=== PATIENT | male | born 1940 | race Caucasian/White ===

== ENCOUNTER 2018-11-02 08:19 | Outpatient (CLI) | payer MEDICARE, SELFPAY ==
[2018-11-02 15:17] LABS: HCT 34.1 % (40.0-50.0); HGB 11.3 g/dL (13.5-17.5); Mean Corp. HGB Concentration 33.1 g/dL (32.0-36.0); Mean Corpuscular Hemoglobin 32.2 pg (27.0-33.0); Mean Corpuscular Volume 97.2 fL (80-95); Mean Platelet Volume 11.7 fL (8.0-11.0); Platelet Count 190 x1000/uL (130-400); RBC 3.51 m/cumm (4.50-6.00); RBC Distribution Width 13.9 % (11.8-14.1); White Blood Cell Count 6.43 k/cumm (4.4-10.8)
[2018-11-02 16:25] LABS: Anion Gap 7.4 mmol/L (3-11); BUN 22 mg/dL (7-18); CO2 29.6 mmol/L (21.0-32.0); CREATININE 1.61 mg/dL (0.70-1.30); Chloride 104 mmol/L (98-107); Estimated GFR 41.61 (mL/min/1.73m2); Potassium 4.1 mmol/L (3.5-5.1); Sodium 141 mmol/L (136-145)
[2018-11-02 16:48] LABS: Troponin I 0.24 ng/mL (0.00-0.06)
[2018-11-02 17:15] LABS: NT-proBNP 3403 pg/mL
== END 2018-11-02 08:39 ==
PROVIDERS: Visit Provider Internal Medicine Interventional Cardiology
DX: I21.4 Non-ST elevation (NSTEMI) myocardial infarction (principal); R06.02 Shortness of breath; I11.9 Hypertensive heart disease without heart failure; I48.91 Unspecified atrial fibrillation; I51.9 Heart disease, unspecified; E78.5 Hyperlipidemia, unspecified; K21.9 Gastro-esophageal reflux disease without esophagitis
CPT/HCPCS: 36415; 80051; 84520; 85027; 99215; 82565; 83880; 84484; 93005; 93010

== ENCOUNTER 2018-11-02 18:22 | Emergency (ER) | payer MEDICARE, SELFPAY ==
[2018-11-02] VITALS (19 sets, daily range): BP systolic 145–161; BP diastolic 61–82; PULSE 83–98; RESP 18–25; TEMP 37.2; O2SAT 93–96
--- NOTE | 2018-11-02 18:44 | DI.RAD_ITS ---
SYMPTOM/DIAGNOSIS: SOB, NSTEMI PORTABLE AP CHEST: The lungs are poorly inflated. No gross infiltrates are seen. The heart size is difficult to evaluate due to hypoinflation. Basilar infiltrates cannot be excluded. Leads overlie the chest. IMPRESSION: Limited exam. No gross evidence of an acute abnormality.
--- NOTE | 2018-11-02 18:45 | W.ED.GENAD ---
Discharge Plan Disposition Patient Disposition: [facility] Condition: Serious Discharge Details Chief Complaint: Chest Pain Clinical Impression: Non-ST elevation VT (NSTEMI) Primary Care Provider: None,None ED Provider: Maverick Albrecht Home Meds and New Rx's Prescriptions: No Action aspirin 81 mg tablet,delayed release (DR/EC) 81 mg PO DAILY RF: 0 nitroglycerin [Nitrostat] 0.4 mg tablet, sublingual 0.4 mg SL ONCE RF: 0 atorvastatin 40 mg tablet 40 mg PO DAILY RF: 0 lisinopril 10 mg tablet 10 mg PO DAILY Qty: 30 RF: 12 furosemide [Lasix] 20 mg tablet 10 mg PO DAILY Qty: 30 RF: 12 metoprolol succinate 25 mg tablet extended release 24 hr 25 mg PO DAILY Qty: 30 RF: 12 Medical Decision Making 78-year-old male with history of coronary artery disease status post drug-eluting stent to his LAD in February 2017. He was in the cardiology office today, establishing care with Dr. So and stated to him that he has had increasing episodes of exertional dyspnea that is begun to limit his activity. Last night he developed 20 minutes of anterior chest pain at for which he took a single nitroglycerin with improvement. After today's clinic visit, labs were ordered and the patient subsequent referred to the emerge department for a positive troponin of 0.24. He denies further episodes of chest discomfort. He states that he has been unable to walk his dog due to the discomfort and it is begun to worsen with such mild activity such as sex wiping snow off his car. He arrives in no acute distress, blood pressure 161/80. His initial EKG shows T wave inversions in leads I, aVL, V6. No comparisons in our system. Reviewed laboratory from earlier in the day which does reveal troponin of 0.24, creatinine 1.6, BNP of 3400. Repeat laboratories are similar. While in the ER, the patient had a recurrent episode of chest discomfort that resolved with single administration of nitroglycerin. His EKGs were faxed & the case discussed with on-call cardiology at [facility], where patient accepted in transfer. Lab Data Lab results reviewed: Yes I reviewed the patient's lab results. Laboratory Results - last 24 hr 11/02/18 11/02/18 11/02/18 19:04 19:04 19:04 WBC 7.24 RBC 3.40 L Hgb 11.3 L Hct 33.0 L MCV 97.1 H MCH 33.2 H MCHC 34.2 RDW 14.0 Plt Count 189 MPV 11.5 H Immature Gran % 0.3 Neutrophils % 42.3 Lymphocytes % 48.6 Monocytes % 4.8 Eosinophils % 3.9 Basophils % 0.1 Absolute Neutrophils 3.06 Absolute Lymphocytes 3.52 H Absolute Monocytes 0.35 Absolute Eosinophils 0.28 Absolute Basophils 0.01 APTT 24.7 Sodium 142 Potassium 3.9 Chloride 104 Carbon Dioxide 31.0 Anion Gap 7.0 BUN 22 H Creatinine 1.81 H Estimated GFR/1.73 m2 36.35 Glucose 103 H Calcium 9.5 Magnesium 2.1 Total Bilirubin 0.8 AST 50 H ALT 65 Alkaline Phosphatase 122 H Troponin I 0.26 H Total Protein 6.9 Albumin 3.4 ECG Data Attestation: I personally reviewed and interpreted this ECG (s) as follows: Prior ECG tracings: not available for review Interpretation: Normal sinus rhythm, rate 94, QRS is T wave inversions in leads I, aVL, V6 HPI General Mode of arrival: ambulatory. Date/Time Provider Initiated Documentation: 11/02/18 18:23. Limitations to Documentation: no limitations. Information obtained by: patient and family. History of Present Illness 78 year old M presents to the emergency department with the chief complaint of Exertional dyspnea and positive troponin, described as moderate, Quality is described as dull, and is localized to the chest. Patient reports no radiation. Patient started experiencing this week(s) and it has been intermittent. Rest improves symptom(s), Movement worsens symptoms . Patient notes chest pain and shortness of breath. Patient did receive the following treatments prior to arrival, none HPI Narrative: Chest pain last night. Increasing intolerance of exertion due to shortness of breath over 2-3 months time. Positive troponin today and referred by cardiology. Related Data Home Medications Medication Instructions Recorded Confirmed aspirin 81 mg tablet,delayed 81 mg PO DAILY 10/30/18 11/02/18 release nitroglycerin 0.4 mg sublingual 0.4 mg SL ONCE 10/30/18 11/02/18 tablet atorvastatin 40 mg tablet 40 mg PO DAILY 11/02/18 11/02/18 furosemide 20 mg tablet 10 mg PO DAILY #30 tab 11/02/18 11/02/18 lisinopril 10 mg tablet 10 mg PO DAILY #30 tab 11/02/18 11/02/18 metoprolol succinate ER 25 mg 25 mg PO DAILY #30 tab 11/02/18 11/02/18 tablet,extended release 24 hr Previous Rx's Medication Instructions Recorded furosemide 20 mg tablet 10 mg PO DAILY #30 tab 11/02/18 lisinopril 10 mg tablet 10 mg PO DAILY #30 tab 11/02/18 metoprolol succinate ER 25 mg 25 mg PO DAILY #30 tab 11/02/18 tablet,extended release 24 hr Allergies Allergy/AdvReac Type Severity Reaction Status Date / Time No Known Allergies Allergy Verified 11/02/18 18:34 General Stated Complaint: Chest Pain YOLA: 2 Review of Systems Review of Systems 8 systems reviewed and otherwise neg [facility] Social History Smoking/Tobacco Use Status: Never Exam Narrative Exam Narrative: GEN: awake, alert, oriented 3. Pleasant, well groomed, interactive. HEAD: Normocephalic, atraumatic ENT: Mucous membranes moist, oropharynx unremarkable, External ear exam unremarkable EYES: PERRL, EOMI NECK: Full ROM, no NIKHIL, no menigismus CHEST/RESP: Nontender, clear to auscultation bilateral, no wheeze/rhonchi/rales CARDIOVASCULAR: RRR, no murmur, rub eber. 2+ Rad pulse bilateral ABDOMEN: Soft, nontender, no mass. +Bowel sounds EXT: Full ROM, trace pre-tibial edema, no rash Neuro: Grossly normal neurologic exam, conversant, interactive. Psych: Speech fluent, thoughts congruent, affect normal Course Vital Signs Temperature 37.2 C 11/02/18 18:31 Pulse 90 11/02/18 18:31 Respiratory Rate 24 11/02/18 18:31 Blood Pressure 161/80 H 11/02/18 18:31 Pulse Oximetry 96 11/02/18 18:31 Temperature 37.2 C 11/02/18 18:31 Temperature Source Temporal Artery Scan 11/02/18 18:31 Pulse 90 11/02/18 18:31 Respiratory Rate 23 11/02/18 18:35 Respiratory Effort Non-Labored 11/02/18 18:35 Respiratory Depth Normal 11/02/18 18:35 Respiratory Pattern Normal 11/02/18 18:35 Blood Pressure 161/80 H 12/31/18 18:31 Blood Pressure Position Sitting 1231/18 18:31 Pulse Oximetry 96 11/02/18 18:31 Oxygen Delivery Method Room Air 11/02/18 18:31 Oxygen Flow Rate 0 11/02/18 18:31 Pain Level 0 11/02/18 18:31 Critical Care Time Total Critical Care Time: 30 Attestation: active chest pain management, discussion with php consultant, review of records.
[2018-11-02 19:11] LABS: Abs Immature Grans 0.02 k/cumm (0.0-0.09); Absolute Basophil Count 0.01 k/cumm (0.0-0.2); Absolute Eosinophil Count 0.28 k/cumm (0.0-0.7); Absolute Lymphocyte Count 3.52 k/cumm (1.2-3.4); Absolute Monocyte Count 0.35 k/cumm (0.11-0.7); Absolute Neutrophil Count 3.06 k/cumm (1.2-6.7); Basophils % 0.1; Eosinophils % 3.9; HGB 11.3 g/dL (13.5-17.5); Immature Grans % 0.3; Lymphocytes % 48.6; Mean Corp. HGB Concentration 34.2 g/dL (32.0-36.0); Mean Corpuscular Hemoglobin 33.2 pg (27.0-33.0); Mean Corpuscular Volume 97.1 fL (80-95); Mean Platelet Volume 11.5 fL (8.0-11.0); Monocytes % 4.8; Neutrophils % 42.3; Platelet Count 189 x1000/uL (130-400); White Blood Cell Count 7.24 k/cumm (4.4-10.8)
[2018-11-02 19:23] LABS: PTT Activated 24.7 sec (21.0-31.4)
[2018-11-02 19:24] LABS: ALT 65 U/L (12-78); AST 50 U/L (15-37); Albumin 3.4 g/dL (3.4-5.0); Alkaline Phosphatase 122 U/L (46-116); BUN 22 mg/dL (7-18); Bilirubin, Total 0.8 mg/dL (0.2-1.0); CREATININE 1.81 mg/dL (0.70-1.30); Calcium 9.5 mg/dL (8.5-10.1); Chloride 104 mmol/L (98-107); Estimated GFR 36.35 (mL/min/1.73m2); Glucose 103 mg/dL (70-100); Magnesium 2.1 mg/dL (1.8-2.4); Potassium 3.9 mmol/L (3.5-5.1); Sodium 142 mmol/L (136-145); Total Protein 6.9 g/dL (6.4-8.2)
--- NOTE | 2018-11-02 19:29 | DI.VRAD_ITS ---
EXAM: XR Chest, 1 View EXAM DATE/TIME: 11/02/2018 6:46 PM CLINICAL HISTORY: 78 years old, male; Signs and symptoms; Shortness of breath; Patient HX: SOB, nstemi TECHNIQUE: XR of the chest, 1 view. Portable exam. COMPARISON: No relevant prior studies available. FINDINGS: Lungs: The lungs are hypoinflated. The left hemidiaphragm is not well elongated, atelectasis versus consolidation left lower lobe. There some minimal increased markings right lower lobe. Pleural space: Left hemidiaphragm not well-seen. Possible small left pleural effusion. No pneumothorax. Heart/Mediastinum: Unremarkable. No cardiomegaly. Bones/joints: Unremarkable. Other findings: The patient is lordotically positioned. IMPRESSION: Hypoinflation. Probable bibasilar atelectasis. Left consolidation and possible small effusion not excludable. COMMENT: Preliminary interpretation is based on receipt of 1 image(s). A final report will be issued subsequently. Dictated and Authenticated by: Merlene Pandey MD. Ordering:MARIE Temple MD
[2018-11-02 19:30] LABS: Troponin I 0.26 ng/mL (0.00-0.06)
[2018-11-02] MEDS: Metoprolol 5 MG/5 ML VIAL IVP (20:13)
[2018-11-02] MEDS: Clopidogrel 300 MG TAB PO (20:24)
[2018-11-02] MEDS: Aspirin 81 MG CHEW 162 MG PO (20:24)
== END 2018-11-02 20:39 | disposition short-term general hospital (02) ==
PROVIDERS: Emergency Provider Emergency Medicine
DX: I21.4 Non-ST elevation (NSTEMI) myocardial infarction (principal); I25.10 Atherosclerotic heart disease of native coronary artery without angina pectoris; Z95.5 Presence of coronary angioplasty implant and graft
CPT/HCPCS: 36415; 80051; 80053; 84520; 85027; 96365; 96367; 96375; 99215; 99291; 71045; 82565; 83735; 83880; 84484; 85025; 85730; 93005

== ENCOUNTER 2018-11-30 09:33 | Outpatient (CLI) | payer MEDICARE, SELFPAY | END 2018-11-30 09:53 | PROVIDERS: Visit Provider Internal Medicine Interventional Cardiology | DX: I25.10 Atherosclerotic heart disease of native coronary artery without angina pectoris (principal); Z95.818 Presence of other cardiac implants and grafts; R06.02 Shortness of breath; I51.9 Heart disease, unspecified; I11.9 Hypertensive heart disease without heart failure | CPT/HCPCS: 99214; 93005; 93010 ==